=== PATIENT | female | born 1960 | race Caucasian/White ===

== ENCOUNTER 2017-06-24 21:18 | Emergency (ER) | payer OTHER ==
[~2017-06-24] VITALS: Ht 175.3 cm; Wt 144.7 kg
[2017-06-24 21:21] VITALS: TEMP 36.9; Ht 175.3 cm; Wt 144.7 kg
--- NOTE | 2017-06-24 22:41 | DIAGNOSTIC IMAGING REPORT ---
CHEST ONE VIEW PORTABLE CLINICAL HISTORY: left supraclavic lymph enlargement pain. Edema. COMPARISON STUDY: No previous studies for comparison. FINDINGS: The bones soft tissues and hemidiaphragms are normal. The cardiomediastinal silhouette is normal. The lungs are clear. The pulmonary vasculature is normal. IMPRESSION: Negative chest. The above report was generated using voice recognition software. It may contain grammatical, syntax or spelling errors. Electronically signed by: Dimitri Guerrero M.D. 06/24/2017 10:40 PM Dictated Date/Time: 06/24/2017 10:40 PM
[2017-06-24 22:52] VITALS: O2SAT 98
[2017-06-24] MEDS ORDERED: NAPR1TAB9 PO (22:57)
[2017-06-24] MEDS ORDERED: OPTIRAY 320 IV PRN (23:00)
[2017-06-24 23:05] LABS: URINE APPEARANCE CLOUDY (CLEAR); URINE BILIRUBIN NEG (NEG); URINE COLOR YELLOW; URINE EPITHELIAL CELL AUTO >30 /lpf (0-5); URINE NITRITE NEG (NEG); URINE SPECIFIC GRAVITY 1.024 (1.000-1.030); UROBILINOGEN NEG (NEG); ZZUR CULT IF INDIC CLEAN CATCH YES
[2017-06-24 23:06] LABS: MANUAL MICROSCOPIC REQUIRED? NO; REVIEW REQ? YES
[2017-06-24 23:07] LABS: BASO % 0.8 %; BASO ABS # 0.07 K/uL (0-0.2); COMPLETE YES; EOS % 2.4 %; HEMATOCRIT 40.7 % (37-47); IG% 0.2 %; LYMPH % 14.8 %; LYMPH ABS # 1.28 K/uL (1.2-3.4); MEAN CELL VOLUME 89.6 fL (80-100); MEAN CORPUSCULAR HEMOGLOBIN 29.1 pg (25-34); MEAN CORPUSCULAR HGB CONC 32.4 g/dl (32-36); MEAN PLATELET VOLUME 10.4 fL (7.4-10.4); MONO % 6.9 %; NEUT % 74.9 %; PLATELET COUNT 410 K/uL (130-400); RED BLOOD COUNT 4.54 M/uL (4.2-5.4); WHITE BLOOD COUNT 8.66 K/uL (4.8-10.8)
[2017-06-24 23:28] LABS: ALT/SGPT 39 U/L (12-78); BLOOD UREA NITROGEN 21 mg/dl (7-18); BUN/CREATININE RATIO 23.3 (10-20); C-REACTIVE PROTEIN 1.26 mg/dl (0-0.29); CARBON DIOXIDE 28 mmol/L (21-32); CHLORIDE 107 mmol/L (98-107); CREATININE 0.91 mg/dl (0.60-1.20); GLUCOSE 152 mg/dl (70-99); POTASSIUM 3.8 mmol/L (3.5-5.1); SODIUM 141 mmol/L (136-145)
[2017-06-24 23:35] LABS: PREG INTERNAL NEGATIVE QC NEG CLEAR BACKGROUND; PREG INTERNAL POSITIVE QC POS CONTROL LINE
[2017-06-24 23:37] LABS: ALKALINE PHOSPHATASE 82 U/L (45-117); AST/SGOT 22 U/L (15-37)
[2017-06-25 00:06] LABS: LYME DISEASE AB IGG NEG (NEG)
[2017-06-25 00:07] LABS: LYME DISEASE AB IGM NEG (NEG)
[2017-06-25 01:01] VITALS: BP 199/93
[2017-06-25 01:21] VITALS: PULSE 93; O2SAT 96
--- NOTE | 2017-06-25 04:17 | EMERGENCY ROOM VISIT NOTE ---
History First contact with patient: 22:08 Chief Complaint: NECK PAIN Stated Complaint: NECK PAIN,SWLLING ABOVE LEFT CLAVICLE History of Present Illness The patient is a 57 year old female who presents to the Emergency Room with complaints of neck pain for the past 2 weeks after sleeping wrong in the bed who hasn't taken Motrin and states the pain has been getting better. Patient states yesterday she noticed she had some swelling to her left clavicle region. Patient states this is nontender to her. Patient states her neck pain feels much better. Patient went to urgent care and was advised to come here. Patient also has been feeling slightly fatigued. Patient states she is a family history of breast cancer and has not had a recent mammogram. Patient states her sister and mother both from this. Patient denies chest pain, dyspnea, fevers, night sweats, weight loss, rashes, abdominal pain, vomiting, diarrhea. She does not smoke. Patient states she has not seen her family care doctor in quite some time. Review of Systems See HPI for pertinent positives & negatives. A total of 10 systems reviewed and were otherwise negative. Past Medical/Surgical History Breast reduction Family History FH: breast cancer in first degree relative Social History Smoking Status: Never Smoker Current/Historical Medications Scheduled PRN Naproxen (Aleve), 220 MG PO Q12 PRN for Pain Physical Exam Vital Signs Date Time Temp Pulse Resp B/P (MAP) Pulse Ox O2 Delivery O2 Flow Rate FiO2 06/25/17 01:21 93 23 96 06/25/17 01:01 199/93 06/25/17 00:55 95 97 06/25/17 00:40 87 97 06/25/17 00:31 184/98 06/25/17 00:25 95 96 06/25/17 00:10 96 98 06/25/17 00:09 192/93 06/24/17 23:40 84 13 98 06/24/17 23:31 202/99 06/24/17 23:26 208/104 97 06/24/17 23:26 208/104 06/24/17 23:25 90 19 98 06/24/17 23:20 93 14 06/24/17 23:05 82 15 06/24/17 22:54 88 20 211/106 98 Room Air 06/24/17 22:52 98 Room Air 06/24/17 22:52 98 Room Air 06/24/17 22:46 89 06/24/17 21:37 88 24 208/108 96 Room Air 06/24/17 21:21 36.9 109 16 217/92 96 Room Air Pain Rating (0-10): 0 Physical Exam VITALS: Vitals are noted on the nurse's note and reviewed by myself. Vital signs hypertensive GENERAL: Pleasant female anxious-appearing, in no acute distress, nondiaphoretic , well-developed well-nourished. SKIN: The skin was without rashes, erythema, edema, or bruising. There is no tenting of the skin. Capillary reflex less than 2 seconds. HEAD: Normocephalic atraumatic. EARS: External auditory canals clear, tympanic membranes pearly ma without erythema or effusion bilaterally. EYES: Pupils equal round and reactive to light and accommodation. Conjunctivae without injection, sclerae without icterus. Extraocular movements intact. NOSE: Patent, turbinates without inflammation or discharge. No sinus tenderness. MOUTH: Mucous membranes moist. Pharynx without erythema or exudate. Uvula midline. Airway patent. Tongue does not deviate. NECK: Supple without nuchal rigidity. Left anterior cervical nodes slightly tender to palpation to patient. No thyromegaly. Cervical spine is nontender. No JVD. HEART: Regular rate and rhythm without murmurs gallops or rubs. Left supraclavicular region edematous and nontender to palpation. Patient is morbidly obese LUNGS: Clear to auscultation bilaterally without wheezes, rales or rhonchi. No dullness to percussion. No retractions or accessory muscle use. ABDOMEN: Positive bowel sounds x 4. Normal tympanic percussion. Soft, protuberant, obese, nontender, without masses or organomegaly. Holm sign negative. No guarding or rebound tenderness. MUSCULOSKELETAL: No muscle atrophy, erythema, noted. NEURO: Patient was alert and oriented to person place and time. Normal sensation to light and sharp touch. No focal neurological deficits. Medical Decision & Procedures Laboratory Results 06/24/17 22:45 Red Blood Count 4.54, Mean Corpuscular Volume 89.6, Mean Corpuscular Hemoglobin 29.1, Mean Corpuscular Hemoglobin Concent 32.4, Mean Platelet Volume 10.4, Neutrophils (%) (Auto) 74.9, Lymphocytes (%) (Auto) 14.8, Monocytes (%) (Auto) 6.9, Eosinophils (%) (Auto) 2.4, Basophils (%) (Auto) 0.8, Neutrophils # (Auto) 6.48, Lymphocytes # (Auto) 1.28, Monocytes # (Auto) 0.60, Eosinophils # (Auto) 0.21, Basophils # (Auto) 0.07 06/24/17 22:45 Test 06/24/17 22:45 06/24/17 22:52 White Blood Count 8.66 K/uL (4.8-10.8) Red Blood Count 4.54 M/uL (4.2-5.4) Hemoglobin 13.2 g/dL (12.0-16.0) Hematocrit 40.7 % (37-47) Mean Corpuscular Volume 89.6 fL (80-100) Mean Corpuscular Hemoglobin 29.1 pg (25-34) Mean Corpuscular Hemoglobin Concent 32.4 g/dl (32-36) Platelet Count 410 K/uL (130-400) Mean Platelet Volume 10.4 fL (7.4-10.4) Neutrophils (%) (Auto) 74.9 % Lymphocytes (%) (Auto) 14.8 % Monocytes (%) (Auto) 6.9 % Eosinophils (%) (Auto) 2.4 % Basophils (%) (Auto) 0.8 % Neutrophils # (Auto) 6.48 K/uL (1.4-6.5) Lymphocytes # (Auto) 1.28 K/uL (1.2-3.4) Monocytes # (Auto) 0.60 K/uL (0.11-0.59) Eosinophils # (Auto) 0.21 K/uL (0-0.5) Basophils # (Auto) 0.07 K/uL (0-0.2) RDW Standard Deviation 46.0 fL (36.4-46.3) RDW Coefficient of Variation 14.0 % (11.5-14.5) Immature Granulocyte % (Auto) 0.2 % Immature Granulocyte # (Auto) 0.02 K/uL (0.00-0.02) Erythrocyte Sedimentation Rate 39 mm/hr (0-21) Urine Color YELLOW Urine Appearance CLOUDY (CLEAR) Urine pH 5.0 (4.5-7.5) Urine Specific [place] 1.024 (1.000-1.030) Urine Protein NEG (NEG) Urine Glucose (UA) NEG (NEG) Urine Ketones NEG (NEG) Urine Occult Blood TRACE (NEG) Urine Nitrite NEG (NEG) Urine Bilirubin NEG (NEG) Urine Urobilinogen NEG (NEG) Urine Leukocyte Esterase LARGE (NEG) Urine WBC (Auto) >30 /hpf (0-5) Urine RBC (Auto) 0-4 /hpf (0-4) Urine Hyaline Casts (Auto) 1-5 /lpf (0-5) Urine Epithelial Cells (Auto) >30 /lpf (0-5) Urine Bacteria (Auto) NEG (NEG) Anion Gap 6.0 mmol/L (3-11) Est Creatinine Clear Calc Drug Dose 107.6 ml/min Estimated GFR () 82.3 Estimated GFR (Non- 71.0 BUN/Creatinine Ratio 23.3 (10-20) Calcium Level 9.0 mg/dl (8.5-10.1) Magnesium Level 2.0 mg/dl (1.8-2.4) Total Bilirubin 0.3 mg/dl (0.2-1) Direct Bilirubin < 0.1 mg/dl (0-0.2) Aspartate Amino Transf (AST/SGOT) 22 U/L (15-37) Alanine Aminotransferase (ALT/SGPT) 39 U/L (12-78) Alkaline Phosphatase 82 U/L (45-117) Lactate Dehydrogenase 282 U/L (84-246) Troponin I < 0.015 ng/ml (0-0.045) C-Reactive Protein 1.26 mg/dl (0-0.29) Total Protein 7.9 gm/dl (6.4-8.2) Albumin 3.9 gm/dl (3.4-5.0) Thyroid Stimulating Hormone (TSH) 2.700 uIu/ml (0.300-4.500) Human Chorionic Gonadotropin, Qual NEG (NEG) Lyme Disease IgG Antibody NEG (NEG) Lyme Disease IgM Antibody NEG (NEG) Bedside Troponin I < 0.030 ng/ml (0-0.045) ED Course Prior records/ancillary studies reviewed and summarized above. Nursing notes reviewed. The patient's history was concerning for left clavicular edema with some neck discomfort and fatigue. Differential diagnosis: Etiologies such as metabolic, infection, carcinoma, hypo/hyperglycemia, electrolyte abnormalities, cardiac sources, intracerebral event, toxicologic, neurologic, as well as others were entertained. Physical examination: As above. ER treatment provided: IV Lock On reassessment the patient felt better. Diagnostics interpretation by me: ECG: Normal sinus, normal intervals, no acute ST-T wave changes. Impression normal sinus rhythm interpreted by myself The labs revealed elevated set, CRP and LDH, hyperglycemia without DKA Imaging studies: Chest x-ray negative for acute findings per radiology CT of the neck, chest, abdomen and pelvis negative for lymphadenopathy, masses. Thyroid nodules noted Exam and history seem consistent with neck discomfort and left clavicular region edema with unclear etiology. Patient is morbidly obese. There was obvious edema noted to this region. Patient was counseled on her blood pressure , cholesterol and family history of cancer. She was strongly encouraged to see her family care DrArlen for further workup for these. Patient was advised to monitor her blood pressure. She is advised to return to the ER immediately for fevers, night sweats, chest pain, difficulty breathing, worsening signs or symptoms or as needed.By the evaluation outlined above emergent etiologies such as infection, electrolyte abnormalities, cardiac sources, intracerebral event, toxologic, neurologic, abnormalities blood glucose, metabolic, as well as others were deemed relatively unlikely. The pt informed about the findings as listed above. All questions were answered and pleased with the treatment. Return instructions were outlined and the patient was discharged in stable condition. Referral: The patient was referred back to primary care physician for follow-up in 2 to 3 days for a recheck of the current condition. Case reviewed with my attending Medical Decision As above Medication Reconcilliation Current Medication List: was personally reviewed by me Blood Pressure Screening Patient's blood pressure: Elevated blood pressure Blood pressure disposition: Referred to PCP Impression Primary Impression: Acute edema Additional Impression: Neck pain Departure Information Dispostion Home / Self-Care Condition GOOD Forms WORK / SCHOOL INSTRUCTIONS, HOME CARE DOCUMENTATION FORM, IMPORTANT VISIT INFORMATION Patient Instructions My [facility], ED Neck Pain No Trauma Additional Instructions You have thyroid nodules that are present on your thyroid. Follow-up with family care for this. Strongly recommend that you get yearly mammograms with your strong family history of breast cancer. Ibuprofen(Motrin, Advil) may be used for fever or pain. Use 600mg every six hours as needed. Take with food. Avoid using more than 2400mg in a 24 hour period. Do not use 2400mg per day for more than three consecutive days without physician direction. Prolonged inappropriate use can lead to stomach upset or ulcers. (AND/OR) Acetaminophen(Tylenol) may be used for fever or pain. Use 1000mg every six hours as needed. Avoid using more than 3000mg in a 24 hour period. Rest and drink plenty of fluids as tolerated. Continue current medications. Avoid strenuous activities and anything that worsens your pain. Resume normal activities once your symptoms resolve. Return to the ER immediately for worsening or persistent swelling, abdominal pain, vomiting, fevers, chest pains, difficulty breathing, worsening of your condition, or as needed. Follow up with your primary physician in 2-3 days for a recheck of your current condition. Problem Qualifiers
--- NOTE | 2017-06-25 06:34 | DIAGNOSTIC IMAGING REPORT ---
CT ABD/PELVIS IV CONTRAST ONLY CLINICAL HISTORY: Adenopathy, family history of breast carcinoma, generalized abdominal pain, nausea. COMPARISON STUDY: None. TECHNIQUE: Following the IV administration of 93 mL of Optiray-320, CT scan of the abdomen and pelvis was performed from the lung bases to the proximal femurs. Images are reviewed in the axial, sagittal, and coronal planes. IV contrast was administered without complication. A dose lowering technique was utilized adhering to the principles of ALARA. CT DOSE: 2579.95 mGy.cm FINDINGS: Lower chest: The heart is normal in size and configuration, without pericardial effusion. The lung bases and pleural spaces are clear. Liver: There is mild hepatic steatosis. No focal masses are visualized. Gallbladder: Cholelithiasis Spleen: 11.8 cm. No splenic masses identified. Pancreas: Unremarkable. Adrenal glands: Unremarkable. Kidneys: There is a complete left renal rotation. No solid renal masses are visualized. There is no hydronephrosis. Bowel: There are no transition zones indicate bowel obstruction. No acute inflammatory changes are visualized. There is no acute diverticulitis. There is no evidence of acute appendicitis. Peritoneum: There is no intraperitoneal free air or abdominal ascites. Vasculature: The abdominal aorta is normal in course and caliber. Adenopathy: None. Pelvic viscera: The bladder, and pelvic viscera are unremarkable. Skeletal structures: No destructive osseous lesions are seen. IMPRESSION: 1. No evidence of bowel obstruction. No evidence of free air 2. Hepatic steatosis 3. Cholelithiasis 4. No acute inflammatory changes. No evidence of acute appendicitis. No evidence of acute diverticulitis 5. No evidence of pathologic adenopathy Electronically signed by: Archie Sanderson M.D. 06/25/2017 6:32 AM Dictated Date/Time: 06/25/2017 6:30 AM
--- NOTE | 2017-06-25 06:43 | DIAGNOSTIC IMAGING REPORT ---
SOFT TISSUE NECK WITH CLINICAL HISTORY: cervical/sup rac lav lymph enlargement, FH breast CA, nausea, pain pain. Adenopathy. TECHNIQUE: Transaxial acquisition with multi axial reformatted images. COMPARISON STUDY: None FINDINGS: Evaluation salivary gland shows general symmetry bilaterally. Several small cervical nodes are identified within the cervical chains bilaterally. These measure up to 8 mm. Multinodular appearing thyroid. No significant cervical adenopathy is present. Mild degenerative change of the osseous structures. The glottic and subglottic regions are unremarkable. IMPRESSION: 1. Several small cervical nodes bilaterally. 2. No evidence for significant adenopathy. 3. Multinodular thyroid. The above report was generated using voice recognition software. It may contain grammatical, syntax or spelling errors. Electronically signed by: Dimitri Guerrero M.D. 06/25/2017 6:42 AM Dictated Date/Time: 06/25/2017 6:40 AM
--- NOTE | 2017-06-25 06:51 | DIAGNOSTIC IMAGING REPORT ---
(CHEST) THORAX WITH HISTORY: 57 years-old Female cervical/supraclav lymph enlargment,. Acute abdominal pain and nausea. COMPARISON: CT abdomen and pelvis 06/24/2017 TECHNIQUE: Multiple axial CT images of the chest were obtained following the intravenous administration of 93 mL Optiray 320. A dose lowering technique was used consistent with the principals of MANDY. FINDINGS: There are calcifications of the thyroid, largest of which measures 6 mm within the right thyroid. There is apparent 1.5 nodule of the left thyroid containing internal calcifications. These findings are nonspecific. There is no pathologic-appearing adenopathy identified. Heart is normal in size without pericardial effusion. No thoracic aneurysm or dissection is seen. There is no pneumothorax, pleural effusion or focal airspace consolidation. Respiratory motion mildly limits evaluation of the lung bases. Minimal mosaic attenuation is seen within the upper lung zones suggesting air trapping. Central airways are patent. Gallstones are seen in the gallbladder neck. There is diffuse fatty infiltration of the liver. Patient obesity is noted. Multilevel endplate spurring is seen throughout the spine. IMPRESSION: 1. No acute intrathoracic abnormality identified. No pathologic adenopathy. 2. Multinodular thyroid with a 1.5 cm nodule seen in the left lobe with associated calcifications. These findings can be further evaluated with dedicated thyroid ultrasound. 3. Fatty infiltration of the liver. 4. Cholelithiasis. The above report was generated using voice recognition software. It may contain grammatical, syntax or spelling errors. Electronically signed by: Elliott Dillard M.D. 06/25/2017 6:50 AM Dictated Date/Time: 06/25/2017 6:44 AM
== END 2017-06-25 01:26 | disposition home or self-care (01) ==
LOC: C.EDB 21:19
DX: M54.2 Cervicalgia (principal); R60.0 Localized edema

== ENCOUNTER → 2017-07-05 | Outpatient (CLI) | payer OTHER ==
[~2017-07-05] MED LIST: NAPR1TAB9 PO
--- NOTE | 2017-07-05 14:43 | DIAGNOSTIC IMAGING REPORT ---
ULTRASOUND-GUIDED FINE-NEEDLE ASPIRATION THYROID CLINICAL HISTORY: Left thyroid nodule. COMPARISON STUDY: CT soft tissue neck 06/24/2017. PROCEDURE: The risks, benefits, and alternatives to the procedure were discussed with the patient. Written informed consent was obtained. The patient was placed supine in ultrasound, and the 2.0 cm nodule in the inferior left lobe of the thyroid was localized by ultrasound and selected for fine needle aspiration. The left neck was prepped and draped in the usual sterile fashion. The nodule was aspirated under ultrasound guidance with 2 passes utilizing 22-gauge needles. Specimens were reviewed by the pathologist in real-time and deemed adequate for diagnosis. The patient tolerated the procedure well and left the department in satisfactory condition. IMPRESSION: Completed fine-needle aspiration of a left thyroid nodule as above. The above report was generated using voice recognition software. It may contain grammatical, syntax or spelling errors. Electronically signed by: Elliott Dillard M.D. 07/05/2017 2:42 PM Dictated Date/Time: 07/05/2017 2:40 PM
--- NOTE | 2017-07-05 14:46 | DIAGNOSTIC IMAGING REPORT ---
LEFT GUIDANCE NEEDLE PLACEMENT CLINICAL HISTORY: Palpable lesion of the left supraclavicular area with clinical suspicion for subcutaneous lipoma. COMPARISON STUDY: CT chest and CT soft tissue neck 06/24/2017. PROCEDURE: The risks, benefits, and alternatives to the procedure were discussed with the patient. Written informed consent was obtained. The patient was placed supine in ultrasound, and the 4.6 cm hypoechoic lesion of the left supraclavicular region was localized by ultrasound and selected for fine needle aspiration. The left supraclavicular region was prepped and draped in the usual sterile fashion. The lesion was aspirated under ultrasound guidance with 2 passes utilizing 22-gauge needles. Specimens were reviewed by the pathologist in real-time and deemed adequate for diagnosis. The patient tolerated the procedure well and left the department in satisfactory condition. IMPRESSION: Completed fine-needle aspiration of a 4.6 cm hypoechoic lesion of the left supraclavicular region as above. The above report was generated using voice recognition software. It may contain grammatical, syntax or spelling errors. Electronically signed by: Elliott Dillard M.D. 07/05/2017 2:45 PM Dictated Date/Time: 07/05/2017 2:42 PM
--- NOTE | 2017-07-05 14:48 | Discharge Instructions ---
Discharge Instructions Procedure Procedure Date: Jul 05, 2017. Reason for visit: Left Thyroid Nodule. Discharge Discharge Date: Jul 05, 2017. Discharge Diagnosis: Same Instructions Activity Recommendations: No limitations Return to School/Work: no limitations Recommended Home Diet: Resume Previous Diet Provider Instructions: ACTIVITY RECOMMENDATIONS: * Rest today. * Resume regular activity in one day. MEDICATIONS: * May take Tylenol or Ibuprofen as needed for pain. DIET: * Resume previous diet. SPECIAL CARE INSTRUCTIONS: Call your doctor if: * Temperature above 101 degrees F. * Pain not relieved by pain medicine ordered. * Increased drainage or redness from incision. * Notify your doctor with any questions or concerns. Call your doctor or go to the nearest Emergency Department if you experience: * Increased chest pain or shortness of breath. FOLLOW UP VISIT: Follow-up with Referring Physician as scheduled. Allergies Coded Allergies: Morphine (Verified Adverse Reaction, Unknown, nausea, 06/24/17) Thad Robles Recommendations: Call your doctor if: * Temperature above 101 degrees * Pain not relieved by pain medicine ordered * There is increased drainage or redness from any incision * You have any unanswered questions or concerns. Your Doctors Instructions noted above were prepared by provider Jese Dillard. Patient Signature Section: Patient Instructions Signature Page Kacy Marley Patient (or Guardian) Signature/Date: I have read and understand the instructions given to me by my caregivers. Caregiver/RN/Doctor Signature/Date: The above-named patient and/or guardian has received patient instructions on this date. + Original Patient Signature Page (only) stays with chart. Please make copy for patient.
== END | disposition home or self-care (01) ==
LOC: C.ULTR 12:19
PROVIDERS: ATTEND Otolaryngology
DX: E06.3 Autoimmune thyroiditis (principal)

== ENCOUNTER → 2017-08-06 | Outpatient (CLI) | payer OTHER ==
--- NOTE | 2017-08-06 11:27 | DIAGNOSTIC IMAGING REPORT ---
R KNEE 3 VIEWS CLINICAL HISTORY: RIGHT KNEE PAIN COMPARISON: None. DISCUSSION: No acute fractures or dislocations are visualized. There are minor degenerative changes. There is no radiographic evidence of a significant joint effusion. IMPRESSION: Minor degenerative change. No fractures are visualized. No destructive lesions are evident. Electronically signed by: Archie Sanderson M.D. 08/06/2017 11:26 AM Dictated Date/Time: 08/06/2017 11:25 AM
== END | disposition home or self-care (01) ==
LOC: C.RADBC 10:50
PROVIDERS: ATTEND Family Medicine
DX: M25.561 Pain in right knee (principal)

== ENCOUNTER → 2017-08-31 | Outpatient (CLI) | payer OTHER ==
--- NOTE | 2017-08-31 12:38 | DIAGNOSTIC IMAGING REPORT ---
THYROID ULTRASONOGRAPHY CLINICAL HISTORY: GOITER COMPARISON STUDY: CT scan dated 06/24/2017 FINDINGS: Both lobes of the thyroid are diffusely heterogeneous in echotexture. The right lobe measures 59 x 25 x 25 mm. There are multiple bilateral thyroid nodules. On the right, there are 4 nodules exceeding 1 cm in size, the largest of which measures 2 cm in maximal diameter. There are multiple right lobe thyroid calcifications. The left lobe measures 57 x 16 x 19 mm. Left lobe calcifications are also present. There is a dominant lower pole nodule measuring 27 mm in long axis. IMPRESSION: Multinodular thyroid goiter. Electronically signed by: Archie Sanderson M.D. 08/31/2017 12:36 PM Dictated Date/Time: 08/31/2017 12:33 PM
== END | disposition home or self-care (01) ==
LOC: C.ULTR 11:44
PROVIDERS: ATTEND Internal Medicine Endocrinology, Diabetes & Metabolism
DX: E04.9 Nontoxic goiter, unspecified (principal); R22.0 Localized swelling, mass and lump, head

== ENCOUNTER → 2017-09-08 | Outpatient (CLI) | payer OTHER ==
--- NOTE | 2017-09-08 14:18 | DIAGNOSTIC IMAGING REPORT ---
ULTRASOUND-GUIDED FINE-NEEDLE ASPIRATION of 2 RIGHT THYROID NODULES HISTORY: Right thyroid nodule. 2 right thyroid nodules. COMPARISON: Thyroid ultrasound 08/31/2017. PROCEDURE: Written informed consent was obtained. The neck was prepped and draped in the usual sterile fashion. 1% lidocaine was used for local anesthesia. A total of 3 passes using a 25-gauge needle were made through the 2 right-sided thyroid nodules which were marked for biopsy by the referring physician under ultrasound guidance. Specimens were given to the on-site pathologist who determined adequate tissue for diagnosis. The patient tolerated the procedure well. There were no immediate complications. IMPRESSION: Successful ultrasound-guided fine-needle aspiration of 2 right thyroid nodules. Electronically signed by: Donte Jean M.D. 09/08/2017 2:16 PM Dictated Date/Time: 09/08/2017 2:15 PM
== END | disposition home or self-care (01) ==
LOC: C.ULTR 12:37
PROVIDERS: ATTEND Internal Medicine Endocrinology, Diabetes & Metabolism
DX: D49.7 Neoplasm of unspecified behavior of endocrine glands and other parts of nervous system (principal); E06.3 Autoimmune thyroiditis

== ENCOUNTER 2017-09-22 05:29 | Observation (INO) | payer OTHER ==
[2017-09-15 15:42] VITALS: BMI 47.0
[~2017-09-22] VITALS: Ht 175.3 cm; Wt 143.0 kg
[2017-09-22] VITALS (10 sets, daily range): BP systolic 148–185; BP diastolic 75–96; PULSE 68–94; TEMP 36.3–37.1; O2SAT 91–97; Ht 175.3 cm; Wt 143.0 kg
[~2017-09-22 05:29] MED LIST changes: +ATOR-22 PO; +METF-384 PO
[2017-09-22] MEDS ORDERED: CEFAZOLIN 3000MG IV PUSH 15 ML IV SCH (06:00)
[2017-09-22] MEDS ORDERED: LACTATED RINGER'S 1000ML 1,000 ML IV SCH (06:00)
--- NOTE | 2017-09-22 06:24 | History & Physical Bridge Note ---
H&P Re-Evaluation Bridge Note: I have examined the patient, reviewed the History & Physical and in the interval since the performance of the History & Physical I have noted the following changes of clinical significance: No changes noted
[2017-09-22] MEDS ORDERED: THROMBIN 5000 UNITS KIT ONE (07:00)
[2017-09-22] MEDS ORDERED: LIDOCAINE/EPINEPHRINE 1% 20 ML VIAL ONE (07:00)
[2017-09-22] MEDS ORDERED: BACITRACIN OINT 15 GM TUBE ONE (07:00)
[2017-09-22] MEDS ORDERED: MIDAZOLAM HCL 1 MG/ML 2ML VIAL ONE (07:05)
[2017-09-22] MEDS ORDERED: FENTANYL CITRATE INJ 50 MCG/1 ML 2 ML VIAL ONE ×3 (07:05→13:41)
[2017-09-22] MEDS ORDERED: ONDANSETRON INJ 2 MG/ML 2 ML VIAL ONE ×3 (07:32→13:40)
[2017-09-22] MEDS ORDERED: DEXAMETHASONE SOD INJ 4 MG/ML VIAL ONE (07:32)
[2017-09-22] MEDS ORDERED: PROPOFOL IV EMULSION 10 MG/ML 20 ML VIAL IV ONE (07:32)
[2017-09-22] MEDS ORDERED: ROCURONIUM BROMIDE 10 MG/ML 5 ML VIAL IV ONE (07:32)
[2017-09-22] MEDS ORDERED: SUCCINYLCHOLINE CHLORIDE 20 MG/ML 10 ML VIAL IV ONE (07:32)
[2017-09-22] MEDS ORDERED: LIDOCAINE HCL 2% 2 ML VIAL (20MG/ML) ONE (07:32)
[2017-09-22] MEDS ORDERED: PHENYLEPHRINE 100MCG/ML 5ML SYR IV PRN (08:00)
[2017-09-22] MEDS ORDERED: EpHEDrine SULFATE INJ 50 MG/ML AMP IV PRN (08:00)
[2017-09-22] MEDS ORDERED: ONDANSETRON INJ 2 MG/ML 2 ML VIAL IV PRN ×2 (08:00→10:30)
[2017-09-22] MEDS ORDERED: ATROPINE SULFATE 0.1 MG/ML 5ML SYR IV PRN (08:00)
[2017-09-22] MEDS ORDERED: SURGICEL ABSORB HEMOSTAT 2IN X 14IN TOP ONE (10:15)
--- NOTE | 2017-09-22 10:25 | [facility] Operative Report ---
Operative Report Operative Date Sep 22, 2017. Pre-Operative Diagnosis Thyroid cancer Post-Operative Diagnosis Papillary Thyroid cancer Procedure(s) Performed Total thyroidectomy Surgeon Dr. Jose Colon Toolman Surgeon(s) Marielena Choi PA-C Estimated Blood Loss 50 mL Findings 1. MULTINODULAR THYROID GLAND WITH SEVERAL FIRM NODULES BILATERALLY 2. INFLAMMATION SURROUNDING THE GLAND MAKING THE DISSECTION VERY DIFFICULT Specimens Permanent specimens A: Right thyroid lobe, double stitch superior pole, single stitch isthmus B: Left thyroid lobe, double stitch superior pole, single stitch isthmus I attest to the content of the Intraoperative Record and any orders documented therein. Any exceptions are noted below.
--- NOTE | 2017-09-22 10:31 | Discharge Instructions ---
Discharge Instructions Date of Service Sep 22, 2017. Admission Reason for Admission: Thyroid Cancer Discharge Discharge Diagnosis / Problem: SAME Discharge Goals Goal(s): Therapeutic intervention Activity Recommendations Activity Limitations: as noted below LIGHT ACTIVITY FOR 2 WEEKS; NO DRIVING WHILE ON NORCO . Current Hospital Diet Patient's current hospital diet: Discharge Diet Recommended Diet: Regular Diet Procedures Procedures Performed: Total thyroidectomy Pending Studies Studies pending at discharge: no Medical Emergencies . Who to Call and When: Medical Emergencies: If at any time you feel your situation is an emergency, please call 911 immediately. . Non-Emergent Contact Non-Emergency issues call your: Surgeon . . "Provider Documentation" section prepared by Jose Colon. . VTE Core Measure Inpt VTE Proph given/why not?: SCD's
[2017-09-22] MEDS ORDERED: LABETALOL HCL IV 5 MG/ML 20ML IV ONE (10:38)
--- NOTE | 2017-09-22 11:01 | OPERATIVE REPORT ---
DATE OF OPERATION: 09/22/2017 PREOPERATIVE DIAGNOSIS: Papillary thyroid carcinoma. POSTOPERATIVE DIAGNOSIS: Papillary thyroid carcinoma. PROCEDURE: Total thyroidectomy. SURGEON: Jose Colon MD SALES PRODUCT SPECIALIST: Marielena Choi PA-C. ESTIMATED BLOOD LOSS: 50 mL. FINDINGS: 1. Severe inflammation surrounding the thyroid gland making the dissection planes quite difficult. 2. A large multinodular gland with firm nodules bilaterally. SPECIMENS: Right and left thyroid lobe sent separately for permanent pathologic specimen. DRAINS: None. COMPLICATIONS: None. INDICATIONS FOR THE PROCEDURE: The patient is a 57-year-old female with a history of left-sided neck pain for which she underwent a CT scan of the neck which revealed a left-sided supraclavicular lipoma as well as a multinodular thyroid gland. 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 She subsequently saw Dr. Angi Riley in endocrinology ordered an ultrasound which showed a multinodular goiter with several calcified nodules bilaterally. She ordered fine needle aspiration biopsy of 2 right thyroid nodules of which the right lower pole nodule came back suspicious of papillary thyroid carcinoma. The patient presents for the above-mentioned procedure on an inpatient elective basis. DESCRIPTION OF PROCEDURE: After informed consent had been obtained from the patient, the patient was wheeled to the operating room and placed on the operating table in the supine position. Monitors were placed. After induction of general endotracheal anesthesia with a size 7 nerve integrity monitor endotracheal tube, the patient's head and neck were gently extended and the patient's pendulous breast tissue had to be taped down in order to have good exposure of the neck. The patient is obese with a weight of approximately 320 pounds. A marking pen was used to outline the planned 6 cm incision in a natural skin crease 2 fingerbreadths above the level of the clavicles. A 3 mL of 1% lidocaine with 1:100,000 epinephrine was used to inject the skin and subcutaneous tissues overlying the planned incision site. The skin in the neck and chest were then prepped and draped in the usual sterile fashion. A #15 scalpel was then used to make the incision through the skin, subcutaneous tissue, and platysma. Subplatysmal flaps were raised superiorly to the level of the thyroid notch and inferiorly to the level of clavicles. The median raphe of the strap muscles were divided using Bovie electrocautery. The strap muscles were retracted laterally and the right thyroid lobe was first addressed. The middle thyroid vein as well as the superior and inferior thyroid vascular pedicles were divided adjacent to the thyroid capsule using a Harmonic scalpel. Dissection was carried lateral to medial with care to identify and preserve the right recurrent laryngeal nerve as well as superior and inferior parathyroid candidates. Of note, the patient had severe inflammation surrounding her thyroid gland which made the dissection quite difficult. Also, her right recurrent laryngeal nerve was densely adherent to the thyroid gland. The decision was made to divide the thyroid gland at the isthmus due to the difficult exposure given the patient's obesity. Orienting sutures were placed in the right thyroid lobectomy specimen, which was sent off for permanent pathological assessment. The left side was then addressed in a similar fashion with similar intraoperative findings. Of note, there was firm thyroid nodules bilaterally that were more firm in the lower pole as compared to the upper poles. The wound was then copiously irrigated and suctioned. Bipolar electrocautery was used to achieve adequate hemostasis. Hemostasis was confirmed with a Valsalva maneuver. Small pieces of Surgicel followed by topical spray thrombin were placed into the bilateral tracheoesophageal grooves for added hemostatic effect. The strap muscle was then reapproximated in midline using a simple running interlocked 3-0 Vicryl suture. The platysma was then closed with several deep 4-0 Monocryl sutures. The skin was then closed with a simple running subcuticular 5-0 Monocryl suture. The incision was cleansed and dried. Dermabond was applied to the incision. This marked the end of the case. The patient tolerated the procedure well. There were no apparent complications. The patient was extubated and transferred to recovery room in stable condition. I attest to the content of the Intraoperative Record and any orders documented therein. Any exceptions are noted below. ADDENDUM: Physician assistant auto center manager, Marielena Choi PA-C, assisted me during the entire case and she performed the neck skin closure including the platysmal closure and the skin closure. TREVA
[2017-09-22] MEDS: HYDROmorphone INJ 2 MG/ML SYR/VIAL IV PRN ×2 (11:21→11:31)
[2017-09-22] MEDS: LACTATED RINGER'S 1000ML 1,000 ML IV SCH ×3 (14:18→20:44)
--- NOTE | 2017-09-22 15:25 | Anesthesiology Progress Note ---
Anesthesia Post Op Note Date & Time Sep 22, 2017 at 15:25 Vital Signs Pain Intensity: 0.0 Vital Signs Past 12 Hours Date Time Temp Pulse Resp B/P (MAP) Pulse Ox O2 Delivery O2 Flow Rate FiO2 09/22/17 15:13 36.8 84 16 160/87 (111) 97 Nasal Cannula 2.0 09/22/17 14:38 162/87 (112) 09/22/17 14:15 36.7 94 20 169/96 (120) 97 Nasal Cannula 2.0 09/22/17 13:18 36.7 84 17 154/83 (106) 97 Room Air 09/22/17 12:45 36.7 84 16 148/91 (110) 95 Nasal Cannula 2.0 09/22/17 12:45 36.7 87 19 152/83 (106) 97 Room Air 09/22/17 12:15 91 Nasal Cannula 2.0 09/22/17 12:15 36.7 82 16 150/77 (101) 91 Nasal Cannula 2.0 09/22/17 12:15 91 Nasal Cannula 2.0 09/22/17 12:00 82 16 156/92 95 Nasal Cannula 2 09/22/17 11:50 36.3 82 16 162/93 95 Nasal Cannula 2 09/22/17 11:40 86 16 166/93 95 Nasal Cannula 2 09/22/17 11:30 86 16 162/91 96 Oxymask 10 09/22/17 11:20 86 16 157/94 96 Oxymask 10 09/22/17 11:10 86 16 139/93 96 Oxymask 10 09/22/17 11:04 36 88 16 159/99 95 Oxymask 10 09/22/17 06:23 37.1 93 18 185/93 (123) 97 Room Air Notes Mental Status: alert / awake / arousable, participated in evaluation Pt Amnestic to Procedure: Yes Nausea / Vomiting: adequately controlled Pain: adequately controlled Airway Patency, RR, SpO2: stable & adequate BP & HR: stable & adequate Hydration State: stable & adequate Anesthetic Complications: no major complications apparent
[2017-09-22] MEDS ORDERED: NURSING DECISION MEDICATION ORDER SCH ×2 (16:00→21:00)
[2017-09-22] MEDS ORDERED: MICONAZOLE NITRATE POWDER 43 GM EXT PRN (16:15)
[2017-09-22 16:33] LABS: CALCIUM 8.4 mg/dl (8.5-10.1); MAGNESIUM 1.9 mg/dl (1.8-2.4)
[2017-09-22] MEDS: HYDROCODONE/ACETAMOPHEN 5/325MG TAB PO PRN ×2 (16:38→20:51)
[2017-09-22] MEDS ORDERED: METFORMIN HCL 500 MG TAB PO SCH (21:00)
[2017-09-22] MEDS ORDERED: COUGH DROP (SUGAR FREE) LOZ 24 LOZ/1 BOX PO PRN (21:45)
[2017-09-22 22:42] LABS: CALCIUM 8.3 mg/dl (8.5-10.1); MAGNESIUM 1.8 mg/dl (1.8-2.4); PHOSPHORUS 2.6 mg/dl (2.5-4.9)
[2017-09-22] MEDS ORDERED: NURSING VERBAL MED ORDER ONE (23:00)
[2017-09-23] MEDS: HYDROCODONE/ACETAMOPHEN 5/325MG TAB PO PRN (02:42)
[2017-09-23 03:07] VITALS: BP 138/84; PULSE 78; TEMP 36.8; O2SAT 96
[2017-09-23 04:45] LABS: CALCIUM 7.6 mg/dl (8.5-10.1); MAGNESIUM 1.8 mg/dl (1.8-2.4); PHOSPHORUS 3.5 mg/dl (2.5-4.9)
--- NOTE | 2017-09-23 05:57 | ENT PROGRESS NOTE ---
DATE: 09/23/2017 The patient is postoperative day #1 status post total thyroidectomy for right-sided papillary thyroid carcinoma. She denies any perioral or digital numbness or paresthesias. She denies any hoarseness or swallowing problems. The patient is afebrile. She has been at times mildly hypertensive with a blood pressure in the 150s/70s. This morning, her blood pressure is 138/84. Her voice is normal. Her neck incision is clean, dry and intact with no hematoma. LABORATORY EXAMINATION: Has shown that her calcium is starting to trend down and went from 8.4 to 8.3 to 7.6 at approximately 4:00 a.m. this morning. Her albumin did go down from 3.6 to 3.4 to 3.3 and so her corrected calcium is not as low as 7.6 and she is asymptomatic. ASSESSMENT AND PLAN: Postoperative day #1 status post total thyroidectomy. I will start the patient on Os-Venu D two pills 4 times daily and will likely taper her over 1 month. I would like to check her labs again at 10:00 a.m., and if her calcium comes up nicely with oral supplementation, she will be discharged later today. The patient is to let her nurse know if she develops any perioral or digital numbness or paresthesias or involuntary muscle spasms or cramps.
[2017-09-23] MEDS: CALCIUM 600MG + VIT D 400 IU TAB PO SCH ×2 (05:58→08:38)
[2017-09-23] MEDS ORDERED: LEVOTHYROXINE 200 MCG TAB PO SCH (06:00)
[2017-09-23] MEDS ORDERED: LEVOTHYROXINE 25 MCG TAB PO SCH (06:00)
[2017-09-23 08:14] VITALS: BP 135/84; PULSE 88; TEMP 36.8; O2SAT 94
[2017-09-23 08:38] VITALS: BP 135/84; PULSE 88; TEMP 36.8
[2017-09-23 08:51] VITALS: O2SAT 94
[2017-09-23] MEDS ORDERED: ATORVASTATIN 20 MG TAB PO SCH (09:00)
[2017-09-23 10:28] LABS: CALCIUM 8.1 mg/dl (8.5-10.1); MAGNESIUM 1.9 mg/dl (1.8-2.4); PHOSPHORUS 3.6 mg/dl (2.5-4.9)
[2017-09-23] MEDS ORDERED: IV FLUIDS COMPLETED PRN (11:00)
[2017-09-23 11:16] VITALS: BP 135/84; PULSE 88; TEMP 36.8; O2SAT 94
[2017-09-23 11:17] VITALS: BP 137/80; PULSE 74; TEMP 37.2
--- NOTE | 2017-09-23 11:17 | DISCHARGE SUMMARY ---
ADMISSION DIAGNOSIS: Right papillary thyroid carcinoma. DISCHARGE DIAGNOSIS: Same, status post total thyroidectomy. HOSPITAL COURSE: The patient is a 57-year-old female who underwent total thyroidectomy on 09/22/2017 for right-sided papillary thyroid carcinoma found on a fine needle aspiration biopsy of right thyroid nodule. 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 Postoperatively, the patient did well. There were no voice problems or dysphagia. The patient denied any perioral or digital numbness or paresthesias. Her calcium did lower from 8.4 to 8.3 to 7.6 and therefore I placed her on oral calcium and vitamin D supplementation. She responded nicely to this and after 2 pills, her calcium went from 7.6 to 8.1. I felt that she was stable to be discharged to home on Os-Venu D taper of 2 pills 4 times daily for 1 week, followed by 2 pills 3 times daily for 1 week, followed by 2 pills twice daily for 1 week, and followed by 2 pills once daily for 1 week. She was also given prescriptions for Gruetli Laager 5 mg/325 mg 1-2 tablets p.o. q. 4 hours p.r.n. with 40 tablets given and also Synthroid 225 mcg daily. She is to follow up with me on postoperative day #6. She should call my office if she developed any perioral or digital numbness or paresthesias and/or involuntary muscle spasms or cramps. She is to keep ice on her neck as much as possible. She should refrain from heavy activity for 2 weeks.
== END 2017-09-23 12:34 | disposition home or self-care (01) ==
LOC: C.ACU 05:29 → INTOOBSV 06:30 → C.MSW 06:30 → ENRESERV 11:41
DX: C73 Malignant neoplasm of thyroid gland (principal); Z78.9 Other specified health status; Z79.84 Long term (current) use of oral hypoglycemic drugs; Z79.899 Other long term (current) drug therapy

== ENCOUNTER 2017-09-25 10:26 | Emergency (ER) | payer OTHER ==
[~2017-09-25] VITALS: Ht 175.3 cm; Wt 141.9 kg
[~2017-09-25 10:26] MED LIST changes: -CALC1CAP36 PO; -CALC200T PO; -LEVO200T PO; -LEVO25TA PO; +NAPR1TAB9 PO
[2017-09-25 10:35] VITALS: TEMP 36.9; Ht 175.3 cm; Wt 141.9 kg
[2017-09-25 11:15] LABS: BASO % 0.4 %; BASO ABS # 0.03 K/uL (0-0.2); COMPLETE YES; EOS % 0.5 %; HEMATOCRIT 40.7 % (37-47); IG% 0.4 %; LYMPH % 12.3 %; LYMPH ABS # 1.05 K/uL (1.2-3.4); MEAN CELL VOLUME 88.1 fL (80-100); MEAN CORPUSCULAR HEMOGLOBIN 29.2 pg (25-34); MEAN CORPUSCULAR HGB CONC 33.2 g/dl (32-36); MEAN PLATELET VOLUME 10.2 fL (7.4-10.4); MONO % 6.7 %; NEUT % 79.7 %; PLATELET COUNT 370 K/uL (130-400); RED BLOOD COUNT 4.62 M/uL (4.2-5.4); WHITE BLOOD COUNT 8.52 K/uL (4.8-10.8)
[2017-09-25] MEDS ORDERED: LEVO200T PO (11:15)
[2017-09-25] MEDS ORDERED: LEVO25TA PO (11:15)
[2017-09-25] MEDS ORDERED: CALC1CAP36 PO (11:15)
[2017-09-25] MEDS ORDERED: CALC200T PO (11:15)
--- NOTE | 2017-09-25 11:15 | EMERGENCY ROOM VISIT NOTE ---
History Report prepared by Sammy: Quan Lara Under the Supervision of: Dr. Ranjan Paul M.D. First contact with patient: 10:40 Chief Complaint: ABNORMAL LABS Stated Complaint: POSSIBLE HYPOCALCEMIA POST THYROIDECTOMY History of Present Illness The patient is a 57 year old female who presents to the Emergency Room with complaints of intermittent tingling in her face starting yesterday. The patient states that she recently had her thyroid removed, and she is worried that she has a low calcium level since her doctor told her if she has any tingling, then she could have low calcium. She states that when she takes her calcium pills it helps with the tingling. The patient states that she is currently on a calcium taper, and she is taking Synthroid. The patient denies any chest pain, shortness of breath, headache, vision changes, loss of consciousness, and back pain. She states that the tingling is not worsened with walking. Source of History: patient Onset: yesterday Position: other (face) Quality: tingling Timing: intermittent Modifying Factors (Relieving): other (calcium) Associated Symptoms: No LOC, No headache, No chest pain, No SOB, No back pain Review of Systems See HPI for pertinent positives & negatives. A total of 10 systems reviewed and were otherwise negative. Past Medical & Surgical Surgical Problems: (1) S/P total thyroidectomy Family History FH: breast cancer in first degree relative Social History Smoking Status: Never Smoker Marital Status: single Occupation Status: employed Current/Historical Medications Scheduled Atorvastatin (Lipitor), 20 MG PO QAM Calcitriol (Calcitriol), 0.25 MCG PO BID Calcium Carbonate-Vitamin D (Oscal 500/200 D-3), 2 TABS PO QID Levothyroxine Sodium (Synthroid), 25 MCG PO DAILY Levothyroxine Sodium (Synthroid), 200 MCG PO DAILY Metformin Hcl (Glucophage), 2,000 MG PO BID Allergies Coded Allergies: Morphine (Verified Adverse Reaction, Unknown, nausea, 09/25/17) Physical Exam Vital Signs Date Time Temp Pulse Resp B/P (MAP) Pulse Ox O2 Delivery O2 Flow Rate FiO2 09/25/17 13:20 79 18 162/86 98 Room Air 09/25/17 11:23 84 18 126/89 97 Room Air 09/25/17 11:14 87 09/25/17 10:35 36.9 98 18 178/98 95 Room Air Physical Exam GENERAL: Patient is well appearing and in minimal distress. HEENT: No acute trauma, normocephalic atraumatic, mucous membranes moist, no nasal congestion, no scleral icterus. NECK: Has a derma-bonded incision scar over the anterior neck horizontal. No stridor, no adenopathy, no meningismus, trachea is midline. LUNGS: No dyspnea. Clear to auscultation and equal bilaterally. No wheeze, no rhonchi. HEART: Regular rate and rhythm. No murmurs, rubs, gallops appreciated. ABDOMEN: Soft, nontender, bowel sounds positive, no masses appreciated, no peritonitis. BACK: No midline tenderness, no CVA tenderness EXTREMITIES: Normal motion all extremities, no cyanosis, no edema. NEUROLOGIC: Alert and oriented, no acute motor or sensory deficits, no focal weakness, cranial nerves grossly intact. SKIN: No rash, no jaundice, no diaphoresis. Medical Decision & Procedures Laboratory Results 09/25/17 11:00 Red Blood Count 4.62, Mean Corpuscular Volume 88.1, Mean Corpuscular Hemoglobin 29.2, Mean Corpuscular Hemoglobin Concent 33.2, Mean Platelet Volume 10.2, Neutrophils (%) (Auto) 79.7, Lymphocytes (%) (Auto) 12.3, Monocytes (%) (Auto) 6.7, Eosinophils (%) (Auto) 0.5, Basophils (%) (Auto) 0.4, Neutrophils # (Auto) 6.80, Lymphocytes # (Auto) 1.05, Monocytes # (Auto) 0.57, Eosinophils # (Auto) 0.04, Basophils # (Auto) 0.03 09/25/17 11:00 Test 09/25/17 11:00 White Blood Count 8.52 K/uL (4.8-10.8) Red Blood Count 4.62 M/uL (4.2-5.4) Hemoglobin 13.5 g/dL (12.0-16.0) Hematocrit 40.7 % (37-47) Mean Corpuscular Volume 88.1 fL (80-100) Mean Corpuscular Hemoglobin 29.2 pg (25-34) Mean Corpuscular Hemoglobin Concent 33.2 g/dl (32-36) Platelet Count 370 K/uL (130-400) Mean Platelet Volume 10.2 fL (7.4-10.4) Neutrophils (%) (Auto) 79.7 % Lymphocytes (%) (Auto) 12.3 % Monocytes (%) (Auto) 6.7 % Eosinophils (%) (Auto) 0.5 % Basophils (%) (Auto) 0.4 % Neutrophils # (Auto) 6.80 K/uL (1.4-6.5) Lymphocytes # (Auto) 1.05 K/uL (1.2-3.4) Monocytes # (Auto) 0.57 K/uL (0.11-0.59) Eosinophils # (Auto) 0.04 K/uL (0-0.5) Basophils # (Auto) 0.03 K/uL (0-0.2) RDW Standard Deviation 44.4 fL (36.4-46.3) RDW Coefficient of Variation 13.6 % (11.5-14.5) Immature Granulocyte % (Auto) 0.4 % Immature Granulocyte # (Auto) 0.03 K/uL (0.00-0.02) Anion Gap 7.0 mmol/L (3-11) Est Creatinine Clear Calc Drug Dose 99.8 ml/min Estimated GFR () 76.2 Estimated GFR (Non- 65.8 BUN/Creatinine Ratio 15.2 (10-20) Calcium Level 7.6 mg/dl (8.5-10.1) Phosphorus Level 4.2 mg/dl (2.5-4.9) Magnesium Level 1.6 mg/dl (1.8-2.4) Laboratory results as reviewed by me. Medications Administered Medications (Trade) Dose Ordered Sig/Kendell Route Start Time Stop Time Status Last Admin Dose Admin Magnesium Sulfate (Magnesium Sulfate) 1 gm NOW STAT IV 09/25/17 11:53 09/25/17 11:54 DC 09/25/17 12:10 1 GM Calcium Gluconate (Calcium Gluconate 10%) 2,000 mg NOW STAT IV 09/25/17 11:53 09/25/17 11:54 DC 09/25/17 12:09 2,000 MG ECG Indication: other (tingling) Rate (beats per minute): 86 Rhythm: normal sinus Findings: no acute ischemic change, no ectopy ED Course 1040: The patient was evaluated in room C4. A complete history and physical exam was performed. 1103: I reevaluated the patient, and he is stable and getting labs. 1153: Calcium Gluconate 10% 2000mg IV, Magnesium Sulfate 1gm IV 1158: I reassessed the patient, and she has been feeling alright. 1223: I reevaluated the patient, and she is getting medications and is stable. She will be ready for discharge. Medical Decision 57 yr old female arrives with paresthesias of hands/face with thyroidectomy a few days ago. On calcium therapy with waxing/waning symptoms. Calcium mildly low, as is magnesium. Given IV Ca and Mag. Will increase to 3 tabs from 2 q4hr after discussing with ENT. She is stable, EKG looks good and no other symptoms. No weakness nor headache/neck pain to suggest stroke, dissection, etc. She has follow up with 72 hours with ENT. Medication Reconcilliation Current Medication List: was personally reviewed by me Blood Pressure Screening Patient's blood pressure: Elevated blood pressure Blood pressure disposition: Elevated BP felt to be situational Impression Primary Impression: Hypocalcemia Additional Impression: Hypomagnesemia Scribe Attestation The scribe's documentation has been prepared under my direction and personally reviewed by me in its entirety. I confirm that the note above accurately reflects all work, treatment, procedures, and medical decision making performed by me. Departure Information Dispostion Home / Self-Care Referrals Jose Colon MD Forms HOME CARE DOCUMENTATION FORM, IMPORTANT VISIT INFORMATION, WORK / SCHOOL INSTRUCTIONS Patient Instructions ED Hypocalcemia, My [facility] Additional Instructions Increase your calcium meds from 2 tablets to 3 tablets each time you take them. Do this until seen by your ENT specialist. Return if passing out, weakness, chest pain, headache, difficulty breathing or other concerning symptoms. Problem Qualifiers
[2017-09-25 11:32] LABS: BUN/CREATININE RATIO 15.2 (10-20); CALCIUM 7.6 mg/dl (8.5-10.1); CREATININE 0.97 mg/dl (0.60-1.20); MAGNESIUM 1.6 mg/dl (1.8-2.4); POTASSIUM 3.3 mmol/L (3.5-5.1)
[2017-09-25 11:40] LABS: PHOSPHORUS 4.2 mg/dl (2.5-4.9)
[2017-09-25] MEDS ORDERED: CALCIUM GLUCONATE 10% 10 ML VIAL IV STA (11:53)
[2017-09-25] MEDS ORDERED: MAGNESIUM SULFATE 1GM / D5W 1 GM BAG IV STA (11:53)
[2017-09-25 13:20] VITALS: BP 162/86; PULSE 79; O2SAT 98
== END 2017-09-25 13:43 | disposition home or self-care (01) ==
LOC: C.EDB 10:28 → C.EDC 13:43
DX: E83.51 Hypocalcemia (principal); E83.42 Hypomagnesemia; E89.0 Postprocedural hypothyroidism; Z80.3 Family history of malignant neoplasm of breast

== ENCOUNTER → 2017-09-25 | Outpatient (CLI) | payer OTHER ==
[~2017-09-25] MED LIST changes: +CALC1CAP36 PO; +CALC200T PO; +LEVO200T PO; +LEVO25TA PO; -NAPR1TAB9 PO
== END | disposition home or self-care (01) ==
LOC: C.LAB 09:56
PROVIDERS: ATTEND Physician Assistant
DX: C73 Malignant neoplasm of thyroid gland (principal)

== ENCOUNTER → 2017-09-28 | Outpatient (CLI) | payer OTHER ==
[~2017-09-28] MED LIST changes: +CALC1CAP36 PO; +CALC200T PO; +LEVO200T PO; +LEVO25TA PO; -NAPR1TAB9 PO
[2017-09-28 09:48] LABS: CALCIUM 8.8 mg/dl (8.5-10.1)
[2017-09-28 10:03] LABS: THYROID STIMULATING HORMONE 0.105 uIu/ml (0.300-4.500)
== END | disposition home or self-care (01) ==
LOC: C.LAB 08:31
DX: E04.9 Nontoxic goiter, unspecified (principal); E83.51 Hypocalcemia

== ENCOUNTER → 2017-10-11 | Outpatient (CLI) | payer OTHER ==
[2017-10-11 15:55] LABS: CALCIUM 9.1 mg/dl (8.5-10.1)
[2017-10-11 16:18] LABS: THYROID STIMULATING HORMONE 0.036 uIu/ml (0.300-4.500)
== END | disposition home or self-care (01) ==
LOC: C.LAB 14:16
PROVIDERS: ATTEND Internal Medicine Endocrinology, Diabetes & Metabolism
DX: C73 Malignant neoplasm of thyroid gland (principal); E89.2 Postprocedural hypoparathyroidism; E83.51 Hypocalcemia

== ENCOUNTER → 2017-10-26 | Outpatient (CLI) | payer OTHER | END | disposition home or self-care (01) | LOC: C.LAB 12:12 | PROVIDERS: ATTEND Internal Medicine Endocrinology, Diabetes & Metabolism | DX: E83.51 Hypocalcemia (principal) ==

== ENCOUNTER → 2017-11-23 | Outpatient (CLI) | payer OTHER | END | disposition home or self-care (01) | LOC: C.LAB 13:34 | PROVIDERS: ATTEND Internal Medicine Endocrinology, Diabetes & Metabolism | DX: E06.3 Autoimmune thyroiditis (principal) ==

== ENCOUNTER → 2017-11-26 | Outpatient (CLI) | payer OTHER ==
--- NOTE | 2017-12-17 07:06 | CODING QUERY NO DIAGNOSIS ---
TREATMENT RENDERED WITHOUT A DIAGNOSIS To promote full compliance with coding requirements relating to patient care, physician participation is requested in all cases of physician coder uncertainty. Please assist us with providing a diagnosis/symptom for the test(s) below: A diagnosis/symptom was not documented on your Order. A valid diagnosis/symptom is required to bill all insurances. Please remember that we are unable to code a diagnosis of rule out, probable, possible, questionable, or suspected. Tests that require a diagnosis: DOS: 11/26/17 * URINE PROTEIN DIAGNOSIS: * URINE CREATININE DIAGNOSIS: Provider Signature: Date: Thank you Ivone Mcdonough [employer] Once completed, please kindly fax back to [phone] For questions please call [phone]
== END | disposition home or self-care (01) ==
LOC: C.LAB 08:05
PROVIDERS: ATTEND Family Medicine
DX: E11.9 Type 2 diabetes mellitus without complications (principal)

== ENCOUNTER → 2018-02-01 | Outpatient (CLI) | payer OTHER ==
[2018-02-01 15:01] LABS: CALCIUM 7.9 mg/dl (8.5-10.1)
== END | disposition home or self-care (01) ==
LOC: C.LAB 12:51
PROVIDERS: ATTEND Internal Medicine Endocrinology, Diabetes & Metabolism
DX: E89.0 Postprocedural hypothyroidism (principal); C73 Malignant neoplasm of thyroid gland; E55.9 Vitamin D deficiency, unspecified

== ENCOUNTER → 2018-02-09 | Outpatient (CLI) | payer OTHER | END | disposition home or self-care (01) | LOC: C.LAB 12:15 | PROVIDERS: ATTEND Internal Medicine Endocrinology, Diabetes & Metabolism | DX: E83.51 Hypocalcemia (principal) ==

== ENCOUNTER → 2018-02-28 | Outpatient (CLI) | payer OTHER ==
[2018-02-28 11:10] LABS: ALBUMIN 3.5 gm/dl (3.4-5.0); CALCIUM 8.1 mg/dl (8.5-10.1)
== END | disposition home or self-care (01) ==
LOC: C.LABBC 07:55
PROVIDERS: ATTEND Internal Medicine Endocrinology, Diabetes & Metabolism
DX: E83.51 Hypocalcemia (principal); E89.0 Postprocedural hypothyroidism; E89.2 Postprocedural hypoparathyroidism

== ENCOUNTER → 2018-03-01 | Outpatient (CLI) | payer OTHER ==
--- NOTE | 2018-03-01 10:05 | DIAGNOSTIC IMAGING REPORT ---
RENAL ULTRASOUND CLINICAL HISTORY: R809 PROTEINURIA COMPARISON STUDY: Abdomen and pelvis CTA 1017. FINDINGS: The right kidney measures 10.7 cm and the left kidney measures 14.8 cm. No hydronephrosis. Normal corticomedullary differentiation and cortical thickness. There are few small bilateral peripelvic cysts, unchanged. The largest on the left measures 3.0 cm. Normal bladder. The bilateral ureteral jets are identified. Hepatic steatosis. IMPRESSION: 1. No hydronephrosis. 2. Small bilateral peripelvic cysts are again noted. 3. Normal bladder. 4. Hepatic steatosis. Electronically signed by: Donte Jean M.D. 03/01/2018 10:04 AM Dictated Date/Time: 03/01/2018 10:02 AM
--- NOTE | 2018-03-01 10:19 | DIAGNOSTIC IMAGING REPORT ---
DUPLEX RENAL ARTERY CLINICAL HISTORY: 57 years-old Female presenting with R809 PROTEINURIA. TECHNIQUE: Real-time grayscale and color and spectral Doppler ultrasound imaging of the kidneys was performed. COMPARISON: CT from 06/24/2017. FINDINGS: Right kidney: Normal echogenicity of renal parenchyma. Right kidney measures 11.5 cm. No hydronephrosis. No convincing evidence of calculus or mass. Intrarenal resistive indices range from 0.64 to 0.67. Normal intrarenal arterial waveforms. Renal artery patent with peak systolic velocity 158 cm/s in the midportion and 109 cm/s distally. Renal vein patent. Left kidney: Normal echogenicity of renal parenchyma. Left kidney measures 13.9 cm. No hydronephrosis. No convincing evidence of calculus or mass. Intrarenal resistive indices range from 0.61 to 0.65. Normal intrarenal arterial waveforms. Renal artery patent with peak systolic velocity 85 cm/s in the midportion and 64 cm/s distally. Renal vein patent. Abdominal aorta: Patent. Peak systolic velocity 146 cm/s. Ratio of right renal artery PSV/aortic PSV: 1.08. Ratio of left renal artery PSV/aortic PSV: 0.58. Other: Hyperechogenicity of liver parenchyma could suggest hepatic steatosis. Reference ranges: Normal main renal artery peak systolic velocity less than 180 cm/s. Ratio of renal artery PSV to aortic PSV less than 3.5 equates to normal or less than 60% stenosis. Only one of the two criteria listed needs to be met for diagnosis. IMPRESSION: 1. No evidence of renal artery stenosis. 2. No hydronephrosis. 3. Suggestion of hepatic steatosis. Electronically signed by: Nba Hubbard M.D. 03/01/2018 10:18 AM Dictated Date/Time: 03/01/2018 10:14 AM
== END | disposition home or self-care (01) ==
LOC: C.ULTR 08:16
PROVIDERS: ATTEND Family Medicine
DX: R80.9 Proteinuria, unspecified (principal); K76.0 Fatty (change of) liver, not elsewhere classified; N28.1 Cyst of kidney, acquired

== ENCOUNTER → 2018-03-17 | Outpatient (CLI) | payer OTHER ==
[2018-03-17 13:30] LABS: ALBUMIN 3.6 gm/dl (3.4-5.0); BLOOD UREA NITROGEN 15 mg/dl (7-18); CALCIUM 7.9 mg/dl (8.5-10.1); CARBON DIOXIDE 27 mmol/L (21-32); GLUCOSE 90 mg/dl (70-99); POTASSIUM 3.8 mmol/L (3.5-5.1); SODIUM 137 mmol/L (136-145)
[2018-03-17 13:31] LABS: PHOSPHORUS 3.3 mg/dl (2.5-4.9)
[2018-03-18 15:50] LABS: ANA SCREEN TC 249X POSITIVE (NEGATIVE); ANTI-dsDNA RECOMBINANT 255X <1 IU/ML; COMPLEMENT C3 TC 44859W 189 MG/DL (90-180); COMPLEMENT C4 TC 44982E 48 MG/DL (16-47)
== END | disposition home or self-care (01) ==
LOC: C.LAB1850 12:00
PROVIDERS: ATTEND Internal Medicine Nephrology
DX: R80.9 Proteinuria, unspecified (principal)

== ENCOUNTER → 2018-03-30 | Outpatient (CLI) | payer OTHER | END | disposition home or self-care (01) | LOC: C.LABBC 08:31 | PROVIDERS: ATTEND Internal Medicine Endocrinology, Diabetes & Metabolism | DX: C73 Malignant neoplasm of thyroid gland (principal); E83.51 Hypocalcemia ==

== ENCOUNTER → 2018-06-28 | Outpatient (CLI) | payer OTHER ==
[2018-06-28 10:49] LABS: ALBUMIN 3.5 gm/dl (3.4-5.0); BLOOD UREA NITROGEN 19 mg/dl (7-18); CALCIUM 8.8 mg/dl (8.5-10.1); CARBON DIOXIDE 29 mmol/L (21-32); CREATININE 0.89 mg/dl (0.60-1.20); GLUCOSE 106 mg/dl (70-99); PHOSPHORUS 4.5 mg/dl (2.5-4.9); SODIUM 139 mmol/L (136-145)
== END | disposition home or self-care (01) ==
LOC: C.LABBC 08:17
PROVIDERS: ATTEND Internal Medicine Nephrology
DX: I10 Essential (primary) hypertension (principal)